=== PATIENT | female | born 1990 | race Caucasian/White ===

== ENCOUNTER 2016-11-13 04:29 | Inpatient (IN) | payer OTHER ==
[~2016-11-13] VITALS: Ht 160 cm; Wt 117.0 kg
[2016-11-13] MEDS ORDERED: Lactated Ringer's 1,000 ML IV PRN (04:47)
[2016-11-13] MEDS ORDERED: Carboprost 250 mCg/mL Inj IM PRN ×2 (04:50→06:35)
[2016-11-13] MEDS ORDERED: Sodium Chloride LOK Flush 10 mL Syringe IVFLUSH PRN (04:50)
[2016-11-13] MEDS ORDERED: fentaNYL-PF 50 mCg/mL 2 mL Inj IVPUSH PRN (04:50)
[2016-11-13] MEDS ORDERED: Hemorrhage Kit, Post Partum XX ONE ×2 (04:50→06:35)
[2016-11-13] MEDS ORDERED: Oxytocin 30 Units/500 mL LR 30 UNITS in IV Premix 1 EACH IV PRN ×2 (04:50→06:35)
[2016-11-13] MEDS ORDERED: Methylergonovine 0.2 mg/mL Inj IM PRN ×2 (04:50→06:35)
[2016-11-13] MEDS ORDERED: Oxytocin 10 Unit/mL Inj IM PRN ×2 (04:50→06:35)
[2016-11-13] MEDS ORDERED: Penicillin G K Inj 5,000,000 UNITS in Dextrose 5% Minibag Plus 100 ML IV ONE (04:50)
[2016-11-13 05:06] LABS: Mean Corpuscular Hemoglobin 27.8 pg (27.0-35.0); Mean Corpuscular Volume 83.1 fL (81-100)
[2016-11-13] MEDS ORDERED: PREN1TAB87 PO (05:07)
[2016-11-13] MEDS ORDERED: CALC-243 PO (05:07)
[2016-11-13] MEDS ORDERED: ACET-171 PO (05:07)
[2016-11-13] MEDS ORDERED: Lactated Ringer's 1,000 ML IV SCH ×2 (05:11→06:34)
[2016-11-13] MEDS ORDERED: Lactated Ringer's 500 ML IV ONE (05:11)
[2016-11-13] MEDS ORDERED: EPHEDrine Sulfate 50 mg/mL Inj IVPUSH PRN (05:15)
[2016-11-13] MEDS ORDERED: fentaNYL 2 mCg/mL-Bupiv 0.125% 100 ML EPIDURAL SCH (05:15)
[2016-11-13] MEDS ORDERED: Atropine 1 mg/10 mL (Code) Syringe IVPUSH PRN (05:15)
[2016-11-13] MEDS ORDERED: Ondansetron 2 mg/mL 2 mL Inj IVPUSH PRN (05:15)
--- NOTE | 2016-11-13 05:49 | PCM.HPANE ---
Patient Data Date of Service: November 13, 2016 Surgeon Admitting Provider:Kali Glynn MD Attending Provider:Kali Glynn MD Primary Care Physician:Kali Glynn MD Other Provider:Fabienne Ramsey Anesthesia Reason for Visit Term Labor Ht/WT & BMI Height (Centimeters): 160 Weight (Kilograms): 117 Body Mass Index Allergies Coded Allergies: No Known Allergies (Unverified , 05/25/16) Past Anesthesia History Anesthesia History: Denies:: Abnormal Airway, Anesthesia Reactions, Difficult Intubation, Fam Anesthesia Reaction, Fam Malignant Hypertherm, Malignant Hyperthermia MRSA MRSA: No Medications Hypertension Medication: No Home Meds Incl Beta Wiley: No Reported Medications Acetaminophen 500 Mg [id number] Mg PO Q6H PRN For Fever 11/13/16 Calcium Carbonate/Vitamin D3 (Calcium 600 + Vit D Tablet)1 Each Tablet1 Each PO DAILY 11/13/16 Vit W-Ca,Fe,FA(<1 mg) ( Vitamins)1 Each Tablet1 Each PO DAILY 11/13/16 History History of ENT Problems?: No HEENT History: Denies:: Abnormal Airway Cataracts Difficult Intubation Dysphagia Glaucoma Hearing Problem Sinus Problem TMJ Denture Type: None Teeth Condition: Within Normal Limits Hx of Heart Problems?: No Cardiovascular History: Denies:: AICD Abdominal Aortic Aneurism Atrial Fibrillation Cardiac Surgery Chest Pain Congestive Heart Failure Coronary Artery Disease Edema Heart Murmur Hypertension Irregular Heartbeat Pacemaker Peripheral Vascular Rheumatic Fever Thrombophlebitis Valvular Heart Disease Hx of Respiratory Problem?: No Respiratory History: Denies:: Asthma COPD Chest Surgery Cough Dyspnea Emphysema Hemoptysis Oxygen Administration Pneumonia Pulmonary Embolism Tuberculosis Use of C-PAP Machine Use of Inhalers / NEBS Hx Neurologic Problems?: No Neurological History: Denies:: Alzheimer's Disease CVA Dementia Dizziness Headaches Multiple Sclerosis Parkinson's Disease Peripheral Neuropathy Seizures TIA Hx of GI Problems?: No Hx of Problems?: No Female Hx: Positive for:: Currently Hx Musculoskeletal Problems?: No Hx Surgeries?: No Smoking Status: Unknown if Ever Smoker Stop/Bang Risk Assessment Category Category 1A: Patient has history of documented sleep apnea, and HAS NOT received any narcotic, sedative or anesthesia administration during this stay. Category 1B: Patient has history of documented sleep apnea, and HAS received any narcotic , sedative or anesthesia administration during this stay Category 2: Patient has SUSPECTED Obstructive Sleep Apnea, and HAS received any narcotic , sedative or anesthesia administration during this stay. Category 3: Patient has SUSPECTED Obstructive Sleep Apnea and HAS NOT received narcotic, sedative or anesthesia administration during this stay. Category 4: Outpatient in Procedural Areas with known sleep apnea or who screen positive for High Risk via the STOP/BANG questionnaire. Exam Exam General Appearance: Alert, Oriented X3, Cooperative, Moderate Distress HEENT/AIRWAY: MP 2 Lungs: Normal Air Movement Heart: Exam Unremarkable Meds/Labs/Diagnostics Admission Meds Current Medications Penicillin G Potassium/ Dextrose/Water (Pfizerpen Inj/ D5W Minibag Plus) 100 ml @ 240 mls/hr ONCE ONCE IV Last administered on 11/13/16t 05:05; Start at 04:50; Stop 11/13/16 at 05:14 Labs Test 11/13/16 04:56 White Blood Count 14.6th/mm3 (3.8-10.1) Red Blood Count 4.85mil/mm3 (3.90-5.20) Hemoglobin 13.5g/dL (12.0-15.6) Hematocrit 40.3% (35.0-46.0) Mean Corpuscular Volume 83.1fL (81-100) Mean Corpuscular Hemoglobin 27.8pg (27.0-35.0) Mean Corpuscular Hemoglobin Concent 33.5% (32.0-37.0) Red Cell Distribution Width 13.9% (12.3-15.4) Platelet Count 255bil/L (150-400) Plan Impression Patient chart reviewed, patient interviewed and anesthestic plan with risks, benefits, and alternatives discussed, and informed consent obtained. ASA Physical Status: ASA2 Mod Systemic Disease Anesthetic Plan: SAB Bene/Risks/Altern/Consents: Yes HP Complete Prior to Induction: Yes Other multip near complete, difficult body habitus for rapid epid placement. offered intrathecal injection offered and accepted as an alternative Ken Bell MD November 13, 2016 05:11
--- NOTE | 2016-11-13 06:02 | HP ---
[address] [address] HISTORY AND PHYSICAL PATIENT: SILVINO BOWERS : 1990 MR#: [id number] ADMIT: 11/13/2016 JOB ID: [id number] CHIEF COMPLAINT: Increased contractions at term. HISTORY OF PRESENT ILLNESS: A 26-year-old, 3, para 2 with an EDC of November 08, 2016 based on a 7 week 3 day ultrasound done March 25, 2016 presents with increasing contractions at 40 and 5/7 weeks. She has had regular care starting in the early 2nd trimester. She is GBS positive. Nursing checks her and finds her to be 7 cm, a change from 4 cm earlier in the morning. ALLERGIES: None known. CURRENT MEDICATIONS: vitamins 1 tablet daily. ISSUES: 1. Excess weight. 2. Marijuana and tobacco use prior to , quit once . 3. Rubella not immune; needs MMR. 4. Bleeding in the early 2nd trimester, resolved. 5. Rh negative. 6. GBS positive. LABS: Blood type O negative, rubella not immune. Serology nonreactive. Hepatitis B surface antigen and HIV tests were negative. A1c was 5.1 in May, 5.0 in August of this year. A 28 week glucose tolerance test showed a fasting of 75, a 1 hour of 81 and 2 hour of 94. Urine culture showed mixed steven. Gonorrhea and Chlamydia cultures were negative. A Pap was normal in May of last year and antibody screen was negative. Both checks her hematocrit at 28 weeks was 36.6, she is GBS positive screened October 11, 2016. PAST GYNECOLOGIC HISTORY: 3, para 2. In 2010 she delivered a 7 pound 6 ounce male. Reports an induction for social reasons in [place]. In 2014 she again delivered a term at 6 pounds 15 ounce female reports again a nonmedical indicated induction. SOCIAL HISTORY: She is a long-term relationship with a male partner. Works caring for adults with special needs. Previously was a cigarette and marijuana user. Reports discontinuing this at the beginning of . Has previously denied alcohol and recreational drug use otherwise. FAMILY HISTORY: Father of the baby has a history of pyloric stenosis. Patient's mother has hypertension. PAST SURGICAL HISTORY: Tonsillectomy. PHYSICAL EXAMINATION: Please see nursing notes for admitting vital signs. She is an uncomfortable, laboring overweight woman. Cervical examination reveals her to be anterior lip, -1 station, 100% effaced; fetus is vertex position heart tracing shows a baseline in the 120s to 130s with accelerations. Tracing is currently difficult to tack picker well because she is receiving intrathecal anesthesia. ASSESSMENT: 1. Gravid at term. 2. Excess weight. 3. Group B streptoccocus positive. 4. Rubella not immune. 5. Marijuana and tobacco use stopped at the onset of per her report. 6. Early 2nd trimester bleeding. 7. Rh negative. PLAN: She received an intrathecal and went on to deliver as below. Rupture of fluids occurred spontaneously just as intrathecal was being placed, and she was noted to have meconium-stained amniotic fluid. Pediatrics was contacted and will be present for delivery. One dose of penicillin was received prior to delivery. MTDD
--- NOTE | 2016-11-13 06:20 | PCM.ANEP1 ---
Post Anesthesia PACU Phase 1 Assessment Date of Service: November 13, 2016 Vital Signs VSS see nurses notes Anesthetic Administered: SAB Level of Alertness: Awake, talking LOPEZ's with Equal Strength: Yes Pain: No Nausea or Vomiting: No CV Function & Hydration Stable: Yes Airway Device: none Oxygen Delivery: Room Air Lungs: Normal Air Movement PACU Phase 2 Assessment Complications: No Follow up Care: N/A Patient Instructions Provided: N/A Ken Bell MD November 13, 2016 06:20
[2016-11-13] MEDS ORDERED: LANOlin HPA 7 Gm Ointment TOPICAL PRN (06:35)
[2016-11-13] MEDS ORDERED: Witch Hazel-Glycerin Pads TOPICAL PRN (06:35)
[2016-11-13] MEDS ORDERED: Benzocaine (Dermoplast) 20% 60 Gm Spray TOPICAL PRN (06:35)
--- NOTE | 2016-11-13 06:54 | OP ---
[address] [address] OPERATIVE REPORT PATIENT: SILVINO BOWERS : 1990 MR#: [id number] ADMIT: 11/13/2016 JOB ID: [id number] DELIVERY NOTE DATE OF DELIVERY: 11/13/2016 Delivery position: Occiput posterior. Apgars: 8 and 9. Delivery weight: 3202 grams EBL: 200 cc. Umbilical cord: Three-vessel cord normal length and appearance. Placenta: Central cord insertion normal appearance. No evidence of retained fragments. Lacerations: Second-degree perineal. Anesthesia: intrathecal; and lidocaine for repair. Complications: 1. Meconium-stained amniotic fluid. 2. Loose nuchal cord reduced after delivery. The patient had a strong urge to push, was found to be completely dilated, +1 station and had received an intrathecal. She pushed effectively bringing the head down. Because of meconium, Pediatrics was present at delivery. Head delivered in occiput posterior position. A loose nuchal cord was identified but before I could reduce it the rest of the body delivered. Nuchal cord was; therefore, reduced after delivery of the body and shoulders. Infant was handed up to mother and nursing for additional stimulation. Cord clamped after 2 minute delay and cord blood collected and sent. Perineum was inspected and showed a shallow second-degree perineal laceration repaired using 2-0 Vicryl after instilling lidocaine. Anesthesia was both lidocaine and an intrathecal. A vaginal rectal exam after repair revealed no sphincter tear and intact sphincter tone. Sponge and needle counts were correct after delivery. Placenta delivered spontaneously with gentle traction on the cord. Bleeding is slowing with IV oxytocin. Patient is in stable condition . She plans to breast-feed. The infant will be followed by Pediatrics. GUILLERMINA
[2016-11-13] MEDS: HYDROcodone-APAP 5-325 mg Tablet PO PRN ×4 (08:19→22:26)
[2016-11-13] MEDS ORDERED: Sodium Chloride LOK Flush 10 mL Syringe IVFLUSH SCH (08:30)
[2016-11-13] MEDS ORDERED: Penicillin G K Inj 3,000,000 UNITS in IV Premix 1 EACH IV SCH (09:30)
[2016-11-14] MEDS: HYDROcodone-APAP 5-325 mg Tablet PO PRN (08:55)
--- NOTE | 2016-11-14 09:03 | PCM.DIOB ---
Obstetrical Disch Instruction Date of Service: Nov 14, 2016 Dates of Hospitalization Date of Hospital Admission November 13, 2016 at 04:45 Providers Admitting Physician: Kali Glynn MD Primary Care Physician: Kali Glynn MD Attending Physician: Kali Glynn MD Discharge Diagnosis Problems: (1) Encounter for full-term uncomplicated delivery Status: Acute ICD Code: O80 (2) Group beta Strep positive Status: Acute ICD Code: B95.1 Diet Discharge Diet: No restrictions Activity Discharge Activity-General: Pelvic Rest for 6 weeks, Balance rest and activity Dressing and Incisional Care Hygiene: October shower Follow Up Plan Follow-up Provider (F9): Kali Glynn MD Follow-up appointment: Weeks (6) Call your provider for: Fever or Chills, Shortness of breath, Heavy vaginal bleeding, Excessive constipation, Red painful breasts Kali Glynn MD Nov 14, 2016 09:03
[2016-11-14] MEDS ORDERED: IBUP-1827 PO (09:04)
[2016-11-14] MEDS ORDERED: HYDR-4003 PO (09:04)
[2016-11-14] MEDS ORDERED: DOCU-41 PO (09:04)
[2016-11-14 09:07] LABS: Mean Corpuscular Volume 85.9 fL (81-100)
[2016-11-14 11:38] VITALS: BP 120/65; PULSE 76; RESP 17
--- NOTE | 2016-11-22 10:43 | DIS ---
[address] [address] DISCHARGE SUMMARY PATIENT: SILVINO BOWERS : 1990 MR#: [id number] ADMIT: 11/13/2016 JOB ID: [id number] DIS: 11/14/2016 DISCHARGE DIAGNOSES: 1. Spontaneous vaginal delivery at 40 and 6/7 weeks. 2. GBS positive, incompletely treated. 3. Marijuana and tobacco use prior to , quit once per her report. 4. Rubella non immune. 5. Second trimester bleeding. 6. Rh negative. 7. Excess weight. ALLERGIES: None known. DISCHARGE MEDICATIONS: 1. vitamins 1 tablet daily. 2. Ibuprofen 600 mg q.6 hours p.r.n. pain. 3. Hydrocodone/acetaminophen 5/325 mg 1-2 tablets q.4 hours p.r.n. pain. 4. Docusate sodium 100 mg p.o. b.i.d. p.r.n. constipation. 5. vitamins 1 tablet daily. DISCHARGE INSTRUCTIONS: 1. Activity ad bernice other than pelvic rest for six weeks. 2. Breast feed ad bernice. 3. Diet ad bernice. 4. Followup with Dr. Glynn in six weeks, sooner if increased bleeding, fevers, signs of infection, excess constipation, etc. HOSPITAL COURSE: The patient is a 26-year-old now 3, para 3, who presented at 40 and 5/7 weeks in active labor. She is GBS positive. Received one dose of IV antibiotics but with incomplete treatment due to the rapidity of her labor. She received an intrathecal and went on to deliver a 3202 g infant in OP position with a loose nuchal cord. her bleeding is slowing. She is caring for her well. Her hematocrit dropped only three points to 37.8. She does have some soreness from a perineal laceration which was repaired. She will be discharged with ibuprofen and hydrocodone for pain. She will followup at six weeks, sooner if problems. GUILLERMINA
== END 2016-11-14 12:30 | disposition home or self-care (01) | DRG 775 ==
LOC: FBCO 04:29 → FBC 04:45
PROVIDERS: ADMIT Family Medicine; ATTEND Family Medicine
PROC: 10E0XZZ Delivery of Products of Conception, External Approach (ICD-10-PCS; principal; 2016-11-13)
PROC: 0KQM0ZZ Repair Perineum Muscle, Open Approach (ICD-10-PCS; 2016-11-13)
DX: O70.1 Second degree perineal laceration during delivery (principal); Z37.0 Single live birth; O99.824 Streptococcus B carrier state complicating childbirth; O69.81X0 Labor and delivery complicated by cord around neck, without compression, not applicable or unspecified; O77.0 Labor and delivery complicated by meconium in amniotic fluid; Z3A.40 40 weeks gestation of pregnancy